=== PATIENT | female | born 1945 | race Caucasian/White ===

== ENCOUNTER → 2018-05-22 | Outpatient (CLI) | payer OTHER ==
[~2018-05-22] MED LIST: ACET-1222 PO; AMLO5TAB3 PO; ASCO1CAP3 PO; ASPI81TA28 PO; ATOR-54 PO; ATOR80TA PO; B-COTAB18 PO; CARV12.5 PO; CARV6.252 PO; CHOL1TAB4 PO; CHOL1TAB76 PO; FERR1TAB23 PO; FRRG PO; FURO80TA63 PO; OMEG10007 PO; TRAM-10 PO; TRIA0.1C2 TOP; TRIA0.1C20 TOP; VTMB12 PO
[2018-05-22 14:14] LABS: BASO % 1.1 %; BASO ABS # 0.06 K/uL (0-0.2); EOS % 3.2 %; EOS ABS # 0.18 K/uL (0-0.5); HEMATOCRIT 39.4 % (37-47); HEMOGLOBIN 13.2 g/dL (12.0-16.0); IG# 0.03 K/uL (0.00-0.02); LYMPH % 31.7 %; LYMPH ABS # 1.78 K/uL (1.2-3.4); MEAN CELL VOLUME 94.9 fL (80-100); MEAN CORPUSCULAR HEMOGLOBIN 31.8 pg (25-34); MEAN CORPUSCULAR HGB CONC 33.5 g/dl (32-36); MEAN PLATELET VOLUME 11.1 fL (7.4-10.4); MONO % 8.9 %; NEUT % 54.6 %; NEUT ABS # 3.07 K/uL (1.4-6.5); PLATELET COUNT 204 K/uL (130-400); RED CELL DISTRIBUTION WIDTH CV 13.9 % (11.5-14.5); RED CELL DISTRIBUTION WIDTH SD 47.8 fL (36.4-46.3); WHITE BLOOD COUNT 5.62 K/uL (4.8-10.8)
[2018-05-22 14:15] LABS: POTASSIUM 4.5 mmol/L (3.5-5.1)
== END | disposition home or self-care (01) ==
LOC: C.LABBC 11:52
PROVIDERS: ATTEND Orthopaedic Surgery Sports Medicine
DX: Z01.818 Encounter for other preprocedural examination (principal)

== ENCOUNTER → 2018-05-27 | Day surgery (SDC) | payer OTHER ==
[2018-05-26 09:57] VITALS: Ht 167.6 cm; Wt 100.0 kg
[~2018-05-27] VITALS: Ht 167.6 cm; Wt 100.0 kg
[~2018-05-27] MED LIST changes: -AMLO5TAB3 PO; -ATOR-54 PO; +ATROPINE SULFATE 0.1 MG/ML 5ML SYR IV PRN; +BUPIVACAINE/EPINEPHRINE 0.5% MPF 1:200,000 30 ML VIAL ONE; -CARV6.252 PO; +CEFAZOLIN 1000MG IV PUSH 7.5 ML IV SCH; +CEFAZOLIN 2000MG IV PUSH 15 ML IV SCH; +CEFAZOLIN SOD 2000MG/15 ML IV PUSH ONE; -CHOL1TAB4 PO; +DEXAMETHASONE SOD INJ 4 MG/ML VIAL ONE; +EpHEDrine SULFATE INJ 50 MG/ML AMP IV PRN; +FENTANYL CITRATE INJ 50 MCG/1 ML 2 ML VIAL IV PRN; +FENTANYL CITRATE INJ 50 MCG/1 ML 2 ML VIAL ONE; -FRRG PO; +LACTATED RINGER'S 1000ML 1,000 ML IV SCH; +LIDOCAINE HCL 2% 2 ML VIAL (20MG/ML) ONE; +LIDOCAINE HCL 2% LOCAL 20 ML VIAL ONE; +MIDAZOLAM HCL 1 MG/ML 2ML VIAL ONE; +ONDANSETRON INJ 2 MG/ML 2 ML VIAL IV PRN; +ONDANSETRON INJ 2 MG/ML 2 ML VIAL ONE; +OXYCODONE/ACETAMINOPHEN 5-325 TAB PO PRN; +PROPOFOL IV EMULSION 10 MG/ML 20 ML VIAL ONE; +SODIUM CHLORIDE 0.9% 1000ML 1,000 ML IV SCH; -TRIA0.1C20 TOP; -VTMB12 PO
--- NOTE | 2018-05-27 09:07 | History & Physical Bridge - [place] ---
H&P Re-Evaluation Bridge Note: I have examined the patient, reviewed the History & Physical and in the interval since the performance of the History & Physical I have noted the following changes of clinical significance: No changes noted
--- NOTE | 2018-05-27 10:54 | [facility] Post Operative Brief Note ---
Immediate Operative Summary Operative Date May 27, 2018. Pre-Operative Diagnosis RIGHT CARPAL TUNNEL SYNDROME, RIGHT DEQUERVAIN'S TENOSYNOVITIS Post-Operative Diagnosis SAME PREOP Procedure(s) Performed Right Carpal Tunnel Release And Dequervain's Release Surgeon DR. Yaniv CROOK Headlight Assembler Surgeon(s) KEN CAREY PA-C Estimated Blood Loss MINIMAL Findings Consistent with Post-Op Diagnosis Specimens NONE Anesthesia Type MAC Complication(s) none Disposition Accompanied Pt To Recovery: no Disposition: Recovery Room / PACU
--- NOTE | 2018-05-27 10:55 | Anesthesia Progress Nt - [facility] ---
Anesthesia Post Op Note Date & Time May 27, 2018 at 10:54 Vital Signs Pain Intensity: 0 Vital Signs Past 12 Hours Date Time Temp Pulse Resp B/P (MAP) Pulse Ox O2 Delivery O2 Flow Rate FiO2 05/27/18 08:49 36.6 50 20 158/81 (106) 97 Room Air Notes Mental Status: alert / awake / arousable, participated in evaluation Pt Amnestic to Procedure: Yes Nausea / Vomiting: adequately controlled Pain: adequately controlled Airway Patency, RR, SpO2: stable & adequate BP & HR: stable & adequate Hydration State: stable & adequate Anesthetic Complications: no major complications apparent
--- NOTE | 2018-05-27 10:57 | Discharge Instructions-[facility]urgCtr ---
Discharge Instructions Date of Service May 27, 2018. Visit Reason for Visit: Right Cts, Radial Styloid Tenosynovitis Discharge Discharge Diagnosis / Problem: SAME ABOVE Discharge Goals Goal(s): Decrease discomfort, Improve function Activity Recommendations Activity Limitations: as noted below Lifting Limitations: until after follow-up appointment Shower/Bathe: keep incision dry Anesthesia . Post Anesthesia Instructions: If you have had General Anesthesia or IV Sedation: * Do not drive today. * Resume driving when surgeon permits. * Do not make important decisions or sign legal documents today. * Call surgeon for: 1. Temperature elevations greater than 101 degrees F. 2. Uncontrollable pain. 3. Excessive bleeding. 4. Persistent nausea and vomiting. 5. Medication intolerance (nausea, vomiting or rash). * For nausea and vomiting use only clear liquids such as: tea, soda, bouillon until nausea subsides, then gradually increase diet as tolerated. * If you have any concerns or questions, call your surgeon's office. If physician is unavailable and it is an emergency, call 911 or go to the nearest emergency room. . Instructions / Follow-Up Instructions / Follow-Up MEDICATIONS: * Resume previous medications unless instructed otherwise by your surgeon. * Always take pain medication on a full stomach or with food to avoid upset stomach. * Do not drink alcohol or drive while taking narcotics. * Ibuprofen or Tylenol may be taken if narcotic not needed. SPECIAL CARE INSTRUCTIONS: __ None _X_ Keep extremity elevated and iced x 48 hours; apply ice 20-30 minutes 8-10 times/day. May remove at night. __ Sling __24 hrs/day __ Remove at night __ Shoulder Immobilizer __ 24 hrs/day __ Remove at night _X_ Dressing _X_ Maintain until seen in office, may shower with plastic over site __ Remove dressings in 24-48 hours and then may shower __ Cover incisions with band-aids after showering __ Do not remove steri-strips Call physician if chills or temperature rises above 102 degrees or pain unrelieved by prescribed pain medications at . . Diet Recommendations Home Diet: resume previous diet Procedures Procedures Performed: Right Carpal Tunnel Release And Dequervain's Release Pending Studies Studies pending at discharge: no Medical Emergencies . Who to Call and When: Medical Emergencies: If at any time you feel your situation is an emergency, please call 911 immediately. . Non-Emergent Contact Non-Emergency issues call your: Primary Care Provider . . "Provider Documentation" section prepared by Simone Higginbotham. .
[2018-05-27 10:58] VITALS: TEMP 36
[2018-05-27 11:38] VITALS: BP 162/57; PULSE 49; O2SAT 100
--- NOTE | 2018-05-27 12:49 | OPERATIVE REPORT ---
DATE OF OPERATION: 05/27/2018 SURGEON: Asif Daley MD DIGITAL COMPUTER SYSTEMS ANALYST: RICKY Soliz. PREOPERATIVE DIAGNOSES: 1. Right carpal tunnel syndrome. 2. Right de Quervain's tenosynovitis. POSTOPERATIVE DIAGNOSES: 1. Right carpal tunnel syndrome. 2. Right de Quervain's tenosynovitis. PROCEDURE PERFORMED: 1. Right carpal tunnel release. 2. Right de Quervain's/first dorsal compartment release. COMPLICATIONS: None. ESTIMATED BLOOD LOSS: Minimal. TOURNIQUET TIME: 18 minutes at 250 mmHg. ANESTHESIA: Local with IV sedation. OPERATIVE INDICATIONS: The patient is a 72-year-old female who has had a history of right hand pain, discomfort, and numbness. This gradually just gotten worse over time. She also has some radial styloid pain and discomfort. She had failed conservative treatment. She had nerve studies that showed carpal tunnel syndrome. The patient elected to proceed with carpal tunnel release and de Quervain's tenosynovitis release. OPERATIVE FINDINGS: Operative findings did reveal degeneration of her first dorsal compartment tendons, particularly the extensor pollicis brevis. There is just some chronic degeneration and partial thickness tearing. It was less than 25%. There were several slips to the thumb abductor as well. These tendons appeared in better condition. There was just one single compartment. OPERATIVE PROCEDURE: The patient was taken to the operating room, identified and placed on the operating room table in supine position. All contact areas were meticulously padded. A right forearm tourniquet was placed. Some IV sedation was provided. I then cleaned the right hand. Initially, 10 mL of a 50:50 combination of 0.5% Marcaine with epinephrine and 2% lidocaine were then injected in and around the proposed incision site of the carpal tunnel release and some into the radial styloid area. We did inject an additional 6 mL of 0.5% Marcaine with epinephrine in the radial styloid area. The right hand was then prepped and draped in usual sterile fashion. The right arm was elevated and exsanguinated with Esmarch. Tourniquet was placed at 250 mmHg. A 2.5-3 cm incision was made in the palm just ulnar to the palmaris longus tendon. Blunt dissection was carried through subcutaneous tissue down to the level of the palmar fascia. The palmar fascia was incised longitudinally in line with skin incision. The underlying transverse carpal ligament was identified. It was transected distally with use of a [place] blade knife and then bluntly spread. Attention was then drawn proximally. Blunt dissection was carried out above and below the ligament proximally. The leg was then transected for a minimum distance of 3 cm proximal to the wrist flexion crease. The ligament was bluntly spread and found to be completely released. The wound was irrigated with copious amounts of normal saline. I then packed this with a sponge and attention was then drawn to the radial styloid. A 2.5 cm incision was made about a centimeter proximal to the radial styloid in a transverse fashion. Blunt dissection was carried through the subcutaneous tissue. Several branches of the superficial radial nerve were identified and protected very carefully throughout the case. I dissected down to the wrist extensor retinaculum. I then mobilized the soft tissues. I then made an incision in the dorsal aspect of the first dorsal compartment. I bluntly spread and made sure I completely released the compartment proximally and distally. There were several slips to the thumb abductor and 1 slip to the extensor with significant degeneration. We took the thumb through range of motion and made sure there was complete release of all tendons. Once this was complete, both wounds were irrigated. I did inject an additional 10 mL of 1% lidocaine to the radial styloid area to obtain adequate anesthesia near the end of the dissection. The tourniquet was then let down for a tourniquet time of 18 minutes. Hemostasis was assured with use of electrocautery. Both wounds were then irrigated extensively and the skin of both incisions was closed with 5-0 nylon suture in a horizontal mattress fashion. The hand was then cleaned and dried and a sterile dressing of Xeroform, 4 x 4, sterile cast padding, and an Jassi bandage were applied. The patient was then transferred to the recovery room in stable condition. The patient tolerated the procedure well with no complication. All needle and sponge counts were correct at the end of the operation. I attest to the content of the Intraoperative Record and any orders documented therein. Any exception s are noted below.
== END | disposition home or self-care (01) ==
LOC: X.SURG 07:47
PROVIDERS: ATTEND Orthopaedic Surgery Sports Medicine
DX: G56.01 Carpal tunnel syndrome, right upper limb (principal); M65.4 Radial styloid tenosynovitis [de Quervain]; Z87.891 Personal history of nicotine dependence; E66.9 Obesity, unspecified